=== PATIENT | female | born 1950 ===

== ENCOUNTER → 2024-03-25 06:27 | Day surgery (SDC) | payer OTHER, MEDICARE, SELFPAY | LOC: GI 06:27 | PROVIDERS: ATTENDING PHYSICIAN Surgery | DX: Z12.11 Encounter for screening for malignant neoplasm of colon (principal); D12.5 Benign neoplasm of sigmoid colon; Z86.010 Personal history of colon polyps; Z80.0 Family history of malignant neoplasm of digestive organs | CPT/HCPCS: 45385; 88305 ==

== ENCOUNTER 2024-08-10 13:06 | Inpatient (IN) | payer MEDICARE, SELFPAY ==
[2024-08-10] VITALS (7 sets, daily range): BP systolic 112–157; BP diastolic 61–108; BMI 24.2; BMI 23.9
--- NOTE | 2024-08-10 08:24 | ED.GENMED ---
History of Present Illness
<TALA Urena - Last Filed: 08/10/24 11:18>
General
Chief Complaint: Flank Pain
Source: patient
Exam Limitations: none
Time Seen by Provider: 08/10/24 08:06
Nursing documentation reviewed up to this point in time: agreed with
History of Present Illness
History of Present Illness:
Patient is a 74-year-old female who presents to the ER complaint of left flank pain chills, and urinary frequency since yesterday. She presents to the ER with rigors chills. Initial temp at triage was 100.1 however on my repeat temp patient's
temperature was 103.3. She complains of left flank pain and is now vomiting during my exam. She did not take any Tylenol today.
She did a eurq-fbn-[id number] urine test at home which was positive for UTI. Patient has a history of kidney stones years ago.
Review of Systems
<TALA Urena - Last Filed: 08/10/24 11:18>
Review of Systems
Allergies reviewed?: Yes
All Other Systems: ROS reviewed and negative except as documented in HPI and ROS
Constitutional: Reports fever and chills
Respiratory: Reports no symptoms
Cardiac: Reports no symptoms
ABD/GI: Reports nausea and vomiting
: Reports frequency and flank pain
Musculoskeletal: Reports no symptoms
Skin: Reports no symptoms
Neurological: Reports no symptoms
Psychiatric: Reports no symptoms
Phy Exam
<TALA Urena - Last Filed: 08/10/24 11:18>
General Physical Exam
General Presentation: no apparent distress
General age: appears stated age
General Skin: warm and dry
General Habitus: normal
General Mental: alert
General Hydration: appears well hydrated
Gastrointestinal Exam
Gastrointestinal Exam: non tender and soft
Musculoskeletal Exam
Musculoskeletal Exam: full ROM
Skin Exam
Skin Exam: normal color and warm/dry
Psychiatric Exam
Psychiatric Exam: normal mood/affect
Sepsis
<TALA Urena - Last Filed: 08/10/24 11:18>
Sepsis Screening
Sepsis Assessment: Sepsis
Sepsis Screen
Sepsis Screen: Sepsis
Date: 08/10/24
Time: 11:18
Course
<TALA Urena - Last Filed: 08/10/24 11:18>
Orders/Labs/Results
Orders:
Orders
08/10/24 08:21
IV Insert/Care/Rem.- Treatment PRN
0.9% Sodium Chloride 1000 ml [Nss] 1,000 ml IV BOLUS
0.9% Sodium Chloride 1000 ml [Nss] 1,000 ml IV BOLUS
Ondansetron Injectable [Zofran] 4 mg IV NOW STA
08/10/24 08:24
CT Abd/pel Without Iv Or Oral Urgent
Comment:
Reason For Exam: left flank pain
08/10/24 08:31
Complete Blood Count/With Diff Urgent
Comprehensive Metabolic Panel Urgent
08/10/24 08:36
Lactate Level [Lactic Acid] Urgent
08/10/24 08:48
Acetaminophen [Tylenol] 650 mg .ROUTE .STK-MED ONE
08/10/24 08:50
Acetaminophen [Tylenol] 650 mg PO NOW STA
08/10/24 08:57
Urinalysis Reflex To Culture Urgent
Date Specimen was Collected: 08/10/24
Time Specimen was Collected: 08:53
Urine Microscopic Reflex Cult Urgent
Urine Culture Urgent
FAITH Source: U
Specimen Description:
Date Specimen was Collected: 08/10/24
Time Specimen was Collected: 08:53
08/10/24 09:48
Ketorolac [Toradol] 15 mg IV NOW STA
08/10/24 09:49
Ketorolac [Toradol] 15 mg .ROUTE .STK-MED ONE
08/10/24 10:22
CefTRIAXone [Rocephin] 1,000 mg IV NOW STA
08/10/24 10:50
Blood Culture Routine
FIATH Source: Blood/Venous
Specimen Description:
Blood Culture Urgent
FAITH Source: Blood/Venous
Specimen Description:
Abnormal Lab Results
08/10/24 08/10/24 08/10/24
08:31 08:36 08:57
WBC 3.6 L 10^3/uL
(4.8-10.8)
RBC 3.87 L 10^6/uL
(4.20-5.40)
Hgb 11.8 L g/dL
(12.0-16.0)
Hct 34.6 L %
(37.0-47.0)
Absolute Lymphs (auto) 0.3 L 10^3/uL
(1.2-3.4)
Absolute Monos (auto) 0.0 L 10^3/uL
(0.1-0.6)
Immature Gran % 0.6 H %
(0-0.5)
Neutrophils % 88.8 H %
(42.2-75.2)
Lymphocytes % 9.4 L %
(20.5-51.1)
Monocytes % 0.6 L %
(1.7-9.3)
BUN 25 H mg/dl
(7-17)
Creatinine 1.1 H mg/dL
(0.6-1.0)
Glucose 150 H mg/dl
(70-99)
Lactic Acid 2.5 H mmol/L
(0.7-2.0)
AST 47 H U/L
(14-36)
ALT 45 H U/L
(0-35)
Ur Occult Blood Reflex Trace A
(Negative)
Urine Nitrite (Reflex) Positive A
(Negative)
Leukocyte Esterase Rfl 1+ A
(Negative)
Urine WBC (Reflex) 30-40 A /HPF
(0-5)
Urine Bacteria (Reflex) Many A
(Negative)
Urine Albumin (Reflex) 3+ A
(Neg - Trace)
08/10/24 08:31
08/10/24 08:31
Vital Signs
Initial and Last Documented VS:
Initial Vital Signs
Temp Pulse Resp BP Pulse Ox
100.1 F 120 20 140/108 96
08/10/24 07:50 08/10/24 07:50 08/10/24 07:50 08/10/24 07:50 08/10/24 07:50
Last Documented Vital Signs
Temp Pulse Resp BP Pulse Ox
100.4 F H 115 27 117/71 89
08/10/24 11:07 08/10/24 10:30 08/10/24 10:30 08/10/24 10:00 08/10/24 10:30
Client Service Representative consulted with Physician
Client Service Representative consulted with physician?: Yes
Name of Physician Consulted: DR Haile
<Reji Nicole, DO - Last Filed: 08/10/24 10:33>
Orders/Labs/Results
Orders:
Orders
08/10/24 08:21
IV Insert/Care/Rem.- Treatment PRN
0.9% Sodium Chloride 1000 ml [Nss] 1,000 ml IV BOLUS
0.9% Sodium Chloride 1000 ml [Nss] 1,000 ml IV BOLUS
Ondansetron Injectable [Zofran] 4 mg IV NOW STA
08/10/24 08:24
CT Abd/pel Without Iv Or Oral Urgent
Comment:
Reason For Exam: left flank pain
08/10/24 08:31
Complete Blood Count/With Diff Urgent
Comprehensive Metabolic Panel Urgent
08/10/24 08:36
Lactate Level [Lactic Acid] Urgent
08/10/24 08:48
Acetaminophen [Tylenol] 650 mg .ROUTE .STK-MED ONE
08/10/24 08:50
Acetaminophen [Tylenol] 650 mg PO NOW STA
08/10/24 08:57
Urinalysis Reflex To Culture Urgent
Date Specimen was Collected: 08/10/24
Time Specimen was Collected: 08:53
Urine Microscopic Reflex Cult Urgent
Urine Culture Urgent
FAITH Source: U
Specimen Description:
Date Specimen was Collected: 08/10/24
Time Specimen was Collected: 08:53
08/10/24 09:48
Ketorolac [Toradol] 15 mg IV NOW STA
08/10/24 09:49
Ketorolac [Toradol] 15 mg .ROUTE .STK-MED ONE
08/10/24 10:22
CefTRIAXone [Rocephin] 1,000 mg IV NOW STA
08/10/24 10:50
Blood Culture Routine
FAITH Source: Blood/Venous
Specimen Description:
Blood Culture Urgent
FAITH Source: Blood/Venous
Specimen Description:
Abnormal Lab Results
08/10/24 08/10/24 08/10/24
08:31 08:36 08:57
WBC 3.6 L 10^3/uL
(4.8-10.8)
RBC 3.87 L 10^6/uL
(4.20-5.40)
Hgb 11.8 L g/dL
(12.0-16.0)
Hct 34.6 L %
(37.0-47.0)
Absolute Lymphs (auto) 0.3 L 10^3/uL
(1.2-3.4)
Absolute Monos (auto) 0.0 L 10^3/uL
(0.1-0.6)
Immature Gran % 0.6 H %
(0-0.5)
Neutrophils % 88.8 H %
(42.2-75.2)
Lymphocytes % 9.4 L %
(20.5-51.1)
Monocytes % 0.6 L %
(1.7-9.3)
BUN 25 H mg/dl
(7-17)
Creatinine 1.1 H mg/dL
(0.6-1.0)
Glucose 150 H mg/dl
(70-99)
Lactic Acid 2.5 H mmol/L
(0.7-2.0)
AST 47 H U/L
(14-36)
ALT 45 H U/L
(0-35)
Ur Occult Blood Reflex Trace A
(Negative)
Urine Nitrite (Reflex) Positive A
(Negative)
Leukocyte Esterase Rfl 1+ A
(Negative)
Urine WBC (Reflex) 30-40 A /HPF
(0-5)
Urine Bacteria (Reflex) Many A
(Negative)
Urine Albumin (Reflex) 3+ A
(Neg - Trace)
08/10/24 08:31
08/10/24 08:31
Vital Signs
Initial and Last Documented VS:
Initial Vital Signs
Temp Pulse Resp BP Pulse Ox
100.1 F 120 20 140/108 96
08/10/24 07:50 08/10/24 07:50 08/10/24 07:50 08/10/24 07:50 08/10/24 07:50
Last Documented Vital Signs
Temp Pulse Resp BP Pulse Ox
100.4 F H 115 27 117/71 89
08/10/24 11:07 08/10/24 10:30 08/10/24 10:30 08/10/24 10:00 08/10/24 10:30
<TALA Urena - Last Filed: 08/10/24 11:18>
MDM/Problems Addressed
Differential Diagnosis Includes:
Not limited to pyelonephritis, UTI renal stone
MDM/Problems Addressed:
Patient is a 74-year-old female who presented with fevers rigors left flank pain frequency. Patient presents febrile at 103.3 with rigors on exam. Patient was given fluids. Patient did vomit during my exam and was given Zofran finally after
nausea resolved patient was given Tylenol now feeling better UA consistent with UTI no RBCs. CAT scan done in the limited because of hip replacements no obvious stone symptoms consistent with pyelonephritis will admit for IV antibiotics and fluids
<TALA Urena - Last Filed: 08/10/24 11:18>
*Radiology
Radiology exam reviewed: radiology read reviewed
*Pulse Oximetry
Patient hypoxic: no
*Critical Care Note
Total Time (30-74mins, 75-104mins- exclusive of procedures): Not Applicable
ED Attending Note
<TALA Urena - Last Filed: 08/10/24 11:18>
-
Portions of this chart may have been created with voice recognition software.� Occasional wrong word or��sound alike� substitutions may have occurred due to the inherent limitations of voice recognition software.
<Reji Nicole DO - Last Filed: 08/10/24 10:33>
ED Attending Note
Patient seen and examined by attending physician: Yes
I performed the substantive portion of visit, reviewed & personally made and approve the management plan that is documented in note by myself or JENINFER.: Yes
ED Attending Note:
Seen with ETL DATABASE DEVELOPER examined dependently left flank pain fever chills dysuria prior kidney stone labs noted urine noted cultures are pending CT noted no definitive stone will start on antibiotics following resuscitation I believe will be prudent to admit
her to the hospital
Discharge Plan
Departure
Patient Disposition: Admit
Date of Disposition: 08/10/24
Time of Disposition: 11:17
Admit to: Med/Surg
Admit to doctor: hospitalist
Presentation/result/management discussed w/ accepting MD/DO: Hospitalist
Patient with high blood pressure during this ER visit?: Yes
Condition: Fair
Covid-19: Not Applicable
Discharge Problem:
Acute pyelonephritis
Prescriptions:
No Action
lisinopril 40 mg Tablet
40 mg PO DAILY
rosuvastatin 40 mg Tablet
40 mg PO DAILY
Referrals:
NONE,* [Family Provider] -
Interventions
Interventions:
*Risk Screen - Suicide Last Done: 08/10/24 07:50
*General Assessment Last Done: 08/10/24 07:50
*Neglect/Abuse Screening Last Done: 08/10/24 08:39
ED- Fall Risk Assessment Last Done: 08/10/24 08:39
*ED COVID-19 Vaccine History Last Done: 08/10/24 07:50
GT-Bapspz-Jfdmlizack Assessment Last Done: 08/10/24 08:39
ED-Female Genitourinary Assessment Last Done: 08/10/24 08:39
Discharge Date and Time
Print Language: THAI
[2024-08-10] MEDS: NSS 1000 IV (08:29)
[2024-08-10] MEDS: ZOFRAN 4 MG IV (08:29)
[2024-08-10 08:44] LABS: % Basophils 0.6 % (0-2); % Immature Granulocytes 0.6 % (0-0.5); % Lymphocytes 9.4 % (20.5-51.1); % Monocytes 0.6 % (1.7-9.3); % Neutrophils 88.8 % (42.2-75.2); Absolute Lymphocytes 0.3 10^3/uL (1.2-3.4); Absolute Neutrophils 3.2 10^3/uL (1.4-6.5); Hematocrit 34.6 % (37.0-47.0); Hemoglobin 11.8 g/dL (12.0-16.0); Mean Corp Hgb Conc. 34.1 g/dL (33.0-37.0); Mean Corpuscular Hgb 30.5 pg (27.0-31.0); Mean Corpuscular Volume 89.4 fL (81.0-99.0); Mean Platelet Volume 10.4 fL (7.4-10.4); Nucleated Red Blood Cells % 0 %; Platelet Count 185 10^3/uL (130-400); Red Blood Cell Count 3.87 10^6/uL (4.20-5.40); Red Cell Dist. Width 12.7 % (11.5-14.5); White Blood Cell Count 3.6 10^3/uL (4.8-10.8)
[2024-08-10] MEDS: TYLENOL 650 MG PO ×2 (08:50→23:24)
[2024-08-10 08:53] LABS: Lactic Acid 2.5 mmol/L (0.7-2.0)
[2024-08-10 08:54] LABS: ALT (SGPT) 45 U/L (0-35); AST (SGOT) 47 U/L (14-36); Albumin 4.9 g/dl (3.5-5.0); Alkaline Phosphatase 64 U/L (38-126); Blood Urea Nitrogen 25 mg/dl (7-17); Calcium 10.1 mg/dl (8.4-10.2); Carbon Dioxide 22 mmol/L (22-30); Chloride 102 mmol/L (98-107); Estimated Creatinine Clearance -14 ml/min; Glucose 150 mg/dl (70-99); Potassium 4.6 mmol/L (3.5-5.1); Sodium 140 mmol/L (135-145); Total Bilirubin 1.2 mg/dl (0.2-1.3); Total Protein 7.4 g/dl (6.3-8.2); eGFR 53.06
[2024-08-10 09:40] LABS: Urine Albumin 3+ (Neg - Trace); Urine Bilirubin Negative (Negative); Urine Character Slightly Cloudy (Clear); Urine Color Yellow; Urine Glucose Negative (Negative); Urine Ketone Negative (Negative); Urine Leukocyte 1+ (Negative); Urine Nitrite Positive (Negative); Urine Occult Blood Trace (Negative); Urine Urobilinogen Negative (Neg - 1+)
[2024-08-10] MEDS: TORADOL 15 MG IV (09:51)
[2024-08-10 10:29] LABS: Urine Squamous Cell 16-20 /LPF (Few)
[2024-08-10 10:31] LABS: Urine Amorphous Seen; Urine Bacteria Many (Negative); Urine Red Blood Cell 0-2 /HPF (0-2); Urine White Cell 30-40 /HPF (0-5)
[2024-08-10] MEDS: ROCEPHIN 1000 MG IV (10:51)
--- NOTE | 2024-08-10 14:55 | PTCARENOTE ---
Pt arrived to 2S on stretcher. Ambulated to bed independently, gait steady. Full assessment completed. Telemetry applied. Pt denies pain, urinary symptoms at this time. Bed locked and in the lowest position, safety maintained. Oriented to room and
call ku.
--- NOTE | 2024-08-10 15:54 | W.PN.UPDATE ---
Update Note
Progress Note Update
I personally performed a history and physical exam of the patient and discussed management with the resident. I reviewed the resident's note and agree with the documented findings and plan of care HPI/CC.
74-year-old female with past medical history of essential hypertension, hyperlipidemia, history of nephrolithiasis and lithotripsy in the past came to ER with new onset of left-sided flank pain associated with fever episode. No reported nausea or
vomiting. Patient patient have some urinary urgency, no hematuria reported. Patient with history of recurrent kidney stone issue and had lithotripsy done in the past, denies of having any drug-resistant urine tract infection in the past.
HEENT: No pallor, cyanosis, or jaundice. Throat clear.
NECK: Supple. No JVD.
RESPIRATORY: Lungs clear to auscultation.
CVS: S1, S2 normal. RRR. No murmur, rub or gallop.
ABDOMEN: Soft, normal BS, left CV tenderness
EXTREMITIES: No peripheral cyanosis or edema.
HOSPITAL ACCOUNT MANAGER: AOx3. No focal deficits.
Sepsis
Left-sided pyelonephritis
Urine tract infection
-Patient comes in with new left-sided costovertebral angle tenderness, urinary urgency/fever/tachycardia
-UA showing pyuria and bacteriuria
-CT abdomen pelvis showing left kidney perinephric fat stranding
-Does have history of kidney stone although no obstructive uropathy this time around
-Blood and urine cs collected in ER
-Patient denies of having any MDR organisms isolated in the past, maintain on IV Rocephin right now
-Vital stable and not having any nausea vomiting. Encourage patient to have increased oral intake
Sinus tachycardia
-part of sepsis, EKG x1
-monitor on telemetry for night
Full code
Total time spent : 77 mins
I personally saw and examined the patient.
I have reviewed all diagnostic interpretations and treatment plans as written.
Time includes patient management by me, time spent at the patients bedside, time to review lab and imaging results, discussing patient care, documentation in the medical record, and time spent with the family or caregiver and discussing care plan
with RN/Consultants.
--- NOTE | 2024-08-10 15:57 | HPS.HSE ---
Family Physician
-
Family Physician: TALA Moreau
Chief Complaint
-
Flank pain
History of Present Illness
74-year-old female with remote history of nephrolithiasis, hypercholesterolemia, hypertension, who presented to the ED with sharp left flank pain, urinary frequency, urgency and incontinence x 1 day. She also noted rigors/chills and subjective
fever. She took an at home ivgw-yjy-qbhoyit UTI test kit which was positive. Sparse history of UTIs in her life, most recent was 'a long time ago'.
Denies dysuria, hematuria, retention, nausea/vomiting, abdominal pain, diarrhea/constipation, reduced p.o. intake or anuria.
Medical History
Past Medical History
Past Medical History: Reports HTN, Hypercholesterolemia and Other (hx of nephrolithiasis)
Past Surgical History: Reports Orthopedic (Bilateral hip replacements) and Urological (lithotripsy X 2)
Social History
Tobacco: Non-smoker
Alcohol: Occasional
Drug: None
Personal:
Living: With Family
Family History
Family History: Cancer (Sister at age 77) and Other (valvular heart disease in mother, stroke in father)
Allergies / Home Medications
Allergies reflects when Allergies were last updated in [facility](ye[facility]IN.
Allergies
Allergy/AdvReac Type Severity Reaction Status Date / Time
Sulfa (Sulfonamide Allergy Unknown Verified 08/10/24 07:52
Antibiotics)
Home Medications
lisinopril 40 mg tablet 40 mg PO DAILY 08/10/24
magnesium oxide 400 mg PO DAILY 08/10/24
rosuvastatin 40 mg tablet 40 mg PO QPM 08/10/24
therapeutic multivitamin 1 tab PO DAILY 08/10/24
Home Medications with original date entered in [facility](ye[facility]
Allergy/Medication List:
Allergies
Allergy/AdvReac Type Severity Reaction Status Date / Time
Sulfa (Sulfonamide Allergy Unknown Verified 08/10/24 07:52
Antibiotics)
Home Medications
lisinopril 40 mg tablet 40 mg PO DAILY 08/10/24
magnesium oxide 400 mg PO DAILY 08/10/24
rosuvastatin 40 mg tablet 40 mg PO QPM 08/10/24
therapeutic multivitamin 1 tab PO DAILY 08/10/24
Review of Systems
-
History Source: Patient
Constitutional: Reports Fever
Respiratory: Denies Trouble Breathing
Cardiac: Denies Chest Pain or Palpitations
Abdomen/GI: Denies Abdominal Pain, Nausea, Vomiting, Diarrhea, Constipated, Bloody Stools or Anorexia
: Reports Frequency, Flank Pain, Incontinence and Urgency; Denies Dysuria, Difficulty Voiding or Bleeding
Musculoskeletal: Denies Edema
Neurological: Denies Dizzy or Headache
Physical Exam
Vital Signs
Vital Signs
Temp Pulse Resp BP Pulse Ox
98.6 F 105 16 112/61 96
08/10/24 14:55 08/10/24 14:55 08/10/24 14:55 08/10/24 14:55 08/10/24 14:55
Physical Exam
General: Well Developed, Well Nourished, No Apparent Distress and Comfortable
HEENT: NormoCephalic, Anicteric and Moist mucous membranes
Respiratory: Clear and Non Labored Respirations; No Wheezes, Rales, Rhonchi or Crackles
Cardiac: S1/S2, Regular Rhythm and Tachycardia; No Peripheral Edema
GI: Soft, Non Tender, Non Distended and Normal Bowel Sounds
Genito-urinary: Costovertebral angle tend (left) and Other (no suprapubic tenderness/fullness)
Musculoskeletal: No Clubbing, No Cyanosis and No Edema
Skin: Warm and Dry
Neuro: Awake and Alert
Psych: Calm
Laboratory Results
-
08/10/24 08:31
08/10/24 08:31
Laboratory Results
Lactic Acid 2.5 mmol/L (0.7-2.0) H 08/10/24 08:36
Total Bilirubin 1.2 mg/dl (0.2-1.3) 08/10/24 08:31
AST 47 U/L (14-36) H 08/10/24 08:31
ALT 45 U/L (0-35) H 08/10/24 08:31
Alkaline Phosphatase 64 U/L (38-126) 08/10/24 08:31
Impression/Plan
-
IMPRESSION: 74 year old female with hypertension, hyperlipidemia, and remote history of nephrolithiasis, who presents with sepsis secondary to pyelonephritis.
PLAN:
Sepsis secondary to pyelonephritis
Febrile, tachycardic, tachypneic, with elevated lactate. No leukocytosis but left shift present.
CT abd/pel: perinephric stranding/edema around the left kidney. There is slight asymmetric fullness of the left-sided collecting system. No obstructing stone visualized
- Admit to telemetry
- Blood cultures, urine culture pending
- Status post IV fluid bolus. Blood pressure normal. Normal p.o. intake, will give IV fluid as needed
- Ceftriaxone started in the ED. Continue ceftriaxone
Prerenal azotemia:
-No known history of CKD. Possibly secondary to sepsis
-Hold lisinopril, avoid nephrotoxic agents
-Monitor for now, start IV fluid as needed
Transaminitis:
Mild. likely reactive, secondary to sepsis
-Follow CMP
Hypertension:
Stable at this time
-Hold lisinopril for azotemia
-Monitor
Hypercholesterolemia:
- Continue rosuvastatin
- Monitor LFTs. Will hold if worsen
DVT prophylaxis: Heparin subcu
CODE STATUS: Full code
[2024-08-10] MEDS: CRESTOR 40 MG PO (17:17)
[2024-08-10 18:31] LABS: Lactic Acid 1.4 mmol/L (0.7-2.0)
[2024-08-10] MEDS: HEPARIN SC (20:00)
[2024-08-11 03:45] VITALS: BP 116/71
[2024-08-11 07:16] LABS: Hematocrit 28.2 % (37.0-47.0); Hemoglobin 9.4 g/dL (12.0-16.0); Mean Corp Hgb Conc. 33.3 g/dL (33.0-37.0); Mean Platelet Volume 11.1 fL (7.4-10.4); Platelet Count 154 10^3/uL (130-400); Red Blood Cell Count 3.24 10^6/uL (4.20-5.40); Red Cell Dist. Width 13.2 % (11.5-14.5); White Blood Cell Count 10.7 10^3/uL (4.8-10.8)
[2024-08-11 07:48] LABS: ALT (SGPT) 41 U/L (0-35); AST (SGOT) 42 U/L (14-36); Albumin 3.6 g/dl (3.5-5.0); Alkaline Phosphatase 65 U/L (38-126); Blood Urea Nitrogen 34 mg/dl (7-17); Calcium 8.9 mg/dl (8.4-10.2); Carbon Dioxide 22 mmol/L (22-30); Chloride 103 mmol/L (98-107); Estimated Creatinine Clearance 36 ml/min; Glucose 90 mg/dl (70-99); Potassium 4.4 mmol/L (3.5-5.1); Sodium 139 mmol/L (135-145); Total Bilirubin 0.8 mg/dl (0.2-1.3); Total Protein 5.9 g/dl (6.3-8.2); eGFR 43.42
[2024-08-11 07:49] VITALS: BP 147/80
[2024-08-11 08:19] LABS: Absolute Neutrophils -Man Diff 9.2 10^3/uL (1.4-6.5); Band Neutrophils 12 % (0-3); Eosinophils 3 % (0-6); Lymphocytes 8 % (20-51); Monocytes 3 % (2-9); Platelets Checked Yes; Segmented Neutrophils 74 % (42-75)
[2024-08-11 08:20] LABS: Normal RBC Morphology Yes; Total Cells Counted 100
[2024-08-11] MEDS: MAG-TAB SR 84 MG PO (09:09)
[2024-08-11] MEDS: STERILE WATER FOR INJECTION 10 ML IV (09:09)
[2024-08-11] MEDS: THERAGRAN 1 TABLET PO (09:09)
[2024-08-11] MEDS: ROCEPHIN 1000 MG IV (09:09)
[2024-08-11] MEDS: LR 1000 IV (09:14)
[2024-08-11] MEDS: HEPARIN 5000 UNITS SC ×2 (09:17→20:48)
--- NOTE | 2024-08-11 11:00 | CM ---
Dx- sepsis/pyelonephritis
Met with pt at bedside
Pt reports she lives with her in a 2 story home; 2 steps to enter, 12 steps to 2nd fl
Independent, active, driving
DME - none
SNF/HH - denies past hx
Has ride at discharge
PCP - Kingsley Felix
Pharm - [facility]
Plan - anticipate home no needs when medically stable
[2024-08-11] MEDS: TYLENOL 650 MG PO ×2 (11:17→23:38)
--- NOTE | 2024-08-11 11:18 | PTCARENOTE ---
Dr. Contreras and Dr. Jensen made aware of patients temp of 103F and HR of 102. Tylenol given per MAR. Care ongoing at this time.
[2024-08-11 11:29] VITALS: BP 154/94
--- NOTE | 2024-08-11 13:39 | W.PN.HOSP.TC ---
Addendum entered and electronically signed by Ori Contreras MD 08/11/24 15:00:
I saw and evaluated the patient. I reviewed the resident�s note and agree with findings and plan as documented in the resident�s note.
1. E. coli bacteremia from left sided pyelonephritis -patient continues to have fever. WBC increased to 10.7 K, continue monitoring. Patient also some bandemia with 12% bands. Currently on IV Rocephin. Blood culture growing E. coli in both
sets, further susceptibility pending. Patient is planned for orthopedic procedure in 2 weeks although in light of bacteremia likely not a candidate. Family requesting infectious disease to be involved in care, consult placed.
2. AGUSTINA -patient renal function declining with creatinine 1.3 today. Likely prerenal in nature and postvoid residual within normal limit. Patient got 1 L of NS yesterday ordered 1 L of LR today. Continue holding lisinopril.
Original Note:
Today's Communication/Plan
-
Ecoli bacteremia, ongoing fevers. Continue ceftriaxone pending sensitivities. Continue IVF
Assessment / Plan
Assessment / Plan
IMPRESSION: 74 year old female with hypertension, hyperlipidemia, and remote history of nephrolithiasis, who presents with sepsis secondary to pyelonephritis.
PLAN:
Sepsis secondary to pyelonephritis and ecoli bacteremia
Febrile, tachycardic, tachypneic, with elevated lactate. No leukocytosis but left shift present. Ongoing fevers. Blood Cx positive for Ecoli
CT abd/pel: perinephric stranding/edema around the left kidney. There is slight asymmetric fullness of the left-sided collecting system. No obstructing stone visualized
- Urine culture pending
- Continue Ceftriaxone pending sensitivities
Prerenal azotemia:
-No known history of CKD. Possibly secondary to sepsis
-Lisinopril dose recently doubled, possibly contributory. Hold. Avoid nephrotoxic agents
-Continue IVF, Monitor
Transaminitis:
Improving. likely reactive, secondary to sepsis
-Follow CMP
Hypertension:
Stable at this time
-Hold lisinopril for azotemia
-Monitor
Hypercholesterolemia:
- Continue rosuvastatin
- Monitor LFTs. Will hold if worsen
DVT prophylaxis: Heparin subcu
CODE STATUS: Full code
Anticipated Discharge: 24 - 48 hours
Subjective/Interval History
-
Date of Service: August 11, 2024
Continued episodic fevers
Objective Data
-
Labs:
Laboratory Results
08/11/24
04:53
WBC 10.7
Hgb 9.4 L D
Hct 28.2 L
Plt Count 154
Sodium 139
Potassium 4.4
Chloride 103
Carbon Dioxide 22
BUN 34 H
Creatinine 1.3 H
Glucose 90
Calcium 8.9
Total Bilirubin 0.8
AST 42 H
ALT 41 H
Alkaline Phosphatase 65
Vital Signs:
Vital Signs
Temp Pulse Resp BP Pulse Ox
98.4 F 102 18 154/94 96
08/11/24 12:20 08/11/24 11:29 08/11/24 11:29 08/11/24 11:29 08/11/24 11:29
I&O
08/10/24 08/11/24 08/12/24
06:59 06:59 06:59
Intake Total 1740 / 1740
Balance 1740 / 1740
Review of Systems
-
History Source: Patient
Constitutional: Reports Fever and No Appetite
Respiratory: Denies Trouble Breathing
Cardiac: Denies Chest Pain or Palpitations
Abdomen/GI: Denies Abdominal Pain, Nausea, Vomiting, Diarrhea, Constipated, Bloody Stools or Black Stools
Genitourinary: Reports Frequency, Flank Pain (left flank pain) and Urgency; Denies Dysuria or Bleeding
Neuro: Denies Dizzy or Headache
Physical Exam
-
General: Well Developed, Well Nourished, No Apparent Distress, Comfortable and Fever
HEENT: Normocephalic, Atraumatic and Other (dry mucous membranes)
Respiratory: Clear to Auscultation and Non Labored Respirations; Negative Wheezes, Rales, Rhonchi or Crackles
Cardiac: Regular Rhythm, S1/S2 and Tachycardic; Negative Murmur, Rub or Calf Tenderness
GI: Soft, Nontender, Nondistended and Normal Bowel Sounds
Genito-urinary: Costovertebral Angle Tend (left)
Musculoskeletal: Negative No Clubbing, No Cyanosis or No Edema
Neuro: Awake, Alert and Nonfocal/Grossly Intact
Psych: Calm and Confused
--- NOTE | 2024-08-11 14:37 | CON.ID ---
Consultation
-
Date/Time Consultation Requested: 08/11/24 14:29
Date/Time Consultation Performed: 08/11/24 14:37
Requesting Provider: Dr Jensen
Performing Provider: Dr Aleman
Reason for Consultation: fever, pyelonephritis
Chief Complaint / Past History
Chief Complaint
flank pain
History of Present Illness
Ms Winkler is a 74 year old female with history of nephrolithiasis who presented here yesterday for 1 day of rigors, subjective fever, sharp L flank pain, urinary frequency and urinary urgency. Also vomited in the ER. She denies: syduria,
hematuria, nausea, vomiting, abdominal pain, diarrhea and constipation. Reports infrequent UTIs. Last renal stone was years ago.
Since arrival here she has been spikinig fevers to 103.2 orally, bp has been stable, HR initially 130s now 80s-100, RR teens, WBC on arrival 3.6 now 10.7, hgb 11.8 now 9.4, plt 154, L shift noted on arrival and has persisted, cr initially 1.1 now
1.3, lactic acid initially 2.5 resolved to 1.4, t bili 0.8, ast 42, alt 41, alk phos 65, ua 30-40 wbc/hpf and many bacteria, 08/10 CT a/p without iv or oral contrast: perinephric stranding/edema around the left kidney. There is slight asymmetric
fullness of the left-sided collecting system. No obstructing stone is visualized, however evaluation of the pelvis is severely limited by the bilateral hip arthroplasties, blood culture E coli by [facility], in two sets of blood cultures, urine
culture in progress, patient had first dose of ceftriaxone 08/10 at 10:51, she is a bit over 24 hours into
Past History
Additional Past Medical History:
HTN, Hypercholesterolemia and Other (hx of nephrolithiasis)
Additional Past Surgical History:
(Bilateral hip replacements) and Urological (lithotripsy X 2)
Allergy History:
Sulfa (Sulfonamide Antibiotics) Allergy (Verified 08/10/24 07:52)
Unknown
Medications Reviewed: Yes
Social History
Tobacco: Non-Smoker
Alcohol: Occasional
Drug: None
Family History
Family History: Not Pertinent
Review of Systems
Review of Systems
General: Fever and Chills
All systems: All other systems were reviewed and were negative
Vital Signs
Temp Pulse Resp BP Pulse Ox
98.4 F 102 18 154/94 96
08/11/24 12:20 08/11/24 11:29 08/11/24 11:29 08/11/24 11:29 08/11/24 11:29
Physical Exam
Physical Exam
Constitutional: No Acute Distress and Acutely Ill
Cardiovascular: Regular Rate and S1/S2; Negative Murmur or Rub
Pulmonary: Clear and Symmetric; Negative Wheezes, Rales or Rhonchi
Gastrointestinal: Soft, Non Tender, Non Distended and Normal Bowel Sounds
Genito-Urinary: Other (tenderness over the L iliac crest, no significant tenderness over the L CVA); Negative Suprapubic Tenderness
Skin: Warm and Dry; Negative Rash or Jaundice
Lab / Diagnostic Study Results
08/11/24 04:53
08/11/24 04:53
Abs Immat Gran (auto) 0.0 10^3/uL (0-0.05) 08/10/24 08:31
Absolute Neuts (auto) 3.2 10^3/uL (1.4-6.5) 08/10/24 08:31
Absolute Lymphs (auto) 0.3 10^3/uL (1.2-3.4) L 08/10/24 08:31
Absolute Monos (auto) 0.0 10^3/uL (0.1-0.6) L 08/10/24 08:31
Absolute Basos (auto) 0.0 10^3/uL (0-0.2) 08/10/24 08:31
Total Counted 100 08/11/24 04:53
Immature Gran % 0.6 % (0-0.5) H 08/10/24 08:31
Neutrophils % 88.8 % (42.2-75.2) H 08/10/24 08:31
Lymphocytes % 9.4 % (20.5-51.1) L 08/10/24 08:31
Monocytes % 0.6 % (1.7-9.3) L 08/10/24 08:31
Eosinophils % 0.0 % (0-6) 08/10/24 08:31
Basophils % 0.6 % (0-2) 08/10/24 08:31
Abs Neuts (Manual) 9.2 10^3/uL (1.4-6.5) H 08/11/24 04:53
Segmented Neutrophils 74 % (42-75) 08/11/24 04:53
Band Neutrophils 12 % (0-3) H 08/11/24 04:53
Lymphocytes (Manual) 8 % (20-51) L 08/11/24 04:53
Eosinophils (Manual) 3 % (0-6) 08/11/24 04:53
Lactic Acid 1.4 mmol/L (0.7-2.0) 08/10/24 18:09
Ur Squamous Epith Cells 16-20 /LPF (Few) 08/10/24 08:57
Microbiology Results
Micro:
08/10/24 08:57 Urine Culture - Preliminary
Urine
08/10/24 10:50 Blood Culture - Preliminary
Blood/Venous Escherichia coli
Gram Stain - Preliminary
08/10/24 10:50 Blood Culture - Preliminary
Blood/Venous Positive culture in progress
Gram Stain - Preliminary
Assessment / Plan
Pyelonephritis of the L Kidney
E coli bacteremia
Remote history of renal stones - calcium
- tenderness is quite low on my exam more over the iliac crest than the CVA, she denies the pain moving but I am still concerned for renal stone
- CT abd was limited by artifact from hip prostheses - check renal US to rule out obstructing stone
- blood culture with e coli - no need to repeat blood cultures for gram negative bacteremia - very low risk of dissemination
- urine culture pending - anticipate e coli
- in general would give 48-72 hour trial of empiric antibiotics before considering a switch, patient is reporting some improvement in her flank pain and VS are becoming stable
- if clinical deterioration could switch to zosyn 4.5 gm iv q6 hr to cover for esbl, however feel it would be early to do that at this time. She does not have frequent antibiotic exposure or exposure to health care
- family asks about C diff, my concern at this time is low; probiotic given
AW
[2024-08-11 15:11] VITALS: BP 118/76
[2024-08-11] MEDS: CRESTOR 40 MG PO (18:30)
[2024-08-11] MEDS: VISBIOME 2 CAP PO (18:30)
[2024-08-11 20:28] VITALS: BP 144/78
[2024-08-11 23:35] VITALS: BP 167/98
[2024-08-12 03:42] VITALS: BP 118/75
[2024-08-12 07:00] VITALS: BP 137/82
[2024-08-12 07:14] LABS: Blood Urea Nitrogen 28 mg/dl (7-17); Calcium 9.3 mg/dl (8.4-10.2); Carbon Dioxide 23 mmol/L (22-30); Chloride 105 mmol/L (98-107); Estimated Creatinine Clearance 39 ml/min; Glucose 97 mg/dl (70-99); Potassium 4.2 mmol/L (3.5-5.1); Sodium 140 mmol/L (135-145)
[2024-08-12 07:18] LABS: Hematocrit 26.3 % (37.0-47.0); Hemoglobin 9.1 g/dL (12.0-16.0); Mean Corp Hgb Conc. 34.6 g/dL (33.0-37.0); Mean Corpuscular Hgb 29.5 pg (27.0-31.0); Mean Corpuscular Volume 85.4 fL (81.0-99.0); Platelet Count 154 10^3/uL (130-400); Red Blood Cell Count 3.08 10^6/uL (4.20-5.40); White Blood Cell Count 9.6 10^3/uL (4.8-10.8)
[2024-08-12] MEDS: THERAGRAN 1 TABLET PO (08:18)
[2024-08-12] MEDS: MAG-TAB SR 84 MG PO (08:18)
[2024-08-12] MEDS: HEPARIN 5000 UNITS SC (08:18)
[2024-08-12] MEDS: VISBIOME 2 CAP PO (08:18)
--- NOTE | 2024-08-12 09:55 | W.PN.ID1 ---
Date of Service
Date of Service: August 12, 2024
Today's Communication
- plan 10 days of keflex
- no stone or hydroureter seen on US
follow up with pcp
Assessment / Plan
Pyelonephritis of the L Kidney
E coli bacteremia
Remote history of renal stones - calcium
- plan 10 days of keflex
- no stone or hydroureter seen on US
follow up with pcp
AW
Chief Complaint
-: UTI
Subjective / Review of Systems
fever curve improving
bp stable
minimal residual flank pain
renal US ureteres not visualized - normal on CT
Vital Signs / Physical Exam
Vital Signs
Vital Signs
Temp Pulse Resp BP Pulse Ox
98.3 F 78 16 137/82 97
08/12/24 07:00 08/12/24 07:00 08/12/24 07:00 08/12/24 07:00 08/12/24 07:00
Physical Exam
Constitutional: No Acute Distress
Cardiovascular: Regular Rate and S1/S2; Negative Murmur or Rub
Pulmonary: Clear and Symmetric; Negative Wheezes or Rales
Gastrointestinal: Soft, Non Tender, Non Distended and Normal Bowel Sounds
Genito-Urinary: CVA Tenderness (minimal)
Skin: Warm and Dry; Negative Rash or Jaundice
Objective Data
Lab Data
Lab Results
08/12/24 05:26
08/12/24 05:26
Estimated Creat Clear 39 ml/min 08/12/24 05:26
Lactic Acid 1.4 mmol/L (0.7-2.0) 08/10/24 18:09
Total Bilirubin 0.8 mg/dl (0.2-1.3) 08/11/24 04:53
AST 42 U/L (14-36) H 08/11/24 04:53
ALT 41 U/L (0-35) H 08/11/24 04:53
Alkaline Phosphatase 65 U/L (38-126) 08/11/24 04:53
Most recent labs reviewed.
Micro Results:
08/10/24 08:57 Urine Culture - Preliminary
Urine Gram negative bacilli
08/10/24 10:50 Blood Culture - Preliminary
Blood/Venous Positive culture in progress
Gram Stain - Preliminary
08/10/24 10:50 Blood Culture - Preliminary
Blood/Venous Escherichia coli
Gram Stain - Preliminary
08/10/24 CT a/p: There is perinephric stranding/edema around the left kidney. There is slight asymmetric fullness of the left-sided collecting system. No obstructing stone is visualized, however evaluation of the pelvis is severely limited by the
bilateral hip arthroplasties
08/11/24 Renal US: Moderate postvoid bladder residual.
Care Review
Plan reviewed with: Physician (Dr Camila brown)
[2024-08-12] MEDS: ROCEPHIN 1000 MG IV (10:54)
[2024-08-12] MEDS: STERILE WATER FOR INJECTION 10 ML IV (10:54)
--- NOTE | 2024-08-12 14:13 | W.PN.UPDATE ---
Update Note
Progress Note Update
I personally performed a history and physical exam of the patient and discussed management with the resident. I reviewed the resident's note and agree with the documented findings and plan of care HPI/CC.
Sepsis
E-coli bacteremia - Partially resistant
Left-sided pyelonephritis
Urine tract infection
-Patient comes in with new left-sided costovertebral angle tenderness, urinary urgency/fever/tachycardia
-CT abdomen pelvis showing left kidney perinephric fat stranding
-Does have history of kidney stone although no obstructive uropathy this time around
-Positive blood culture growing E. coli which is partially drug-resistant. Currently on Rocephin to which organism is sensitive.
AGUSTINA
-improving with IVF
-continue holding NAEEM/ARB
Sinus tachycardia - Improved
-d/c tele
Full code
--- NOTE | 2024-08-12 14:52 | CM ---
Addendum entered by Sandra Galdamez 08/12/24 16:31:
Pt for discharge today
Has ride home
Discussed IMM
Plan - home no needs
Original Note:
Case management following for discharge planning
Chart reviewed
ID following
Receiving IVF's
Monitoring labs
CM remains available for d/c needs
Plan - anticipate home no needs when medically stable
--- NOTE | 2024-08-12 14:53 | W.PN.HOSP.TC ---
Today's Communication/Plan
-
Transition to oral Keflex upon discharge. DC planning
Assessment / Plan
Assessment / Plan
IMPRESSION: 74 year old female with hypertension, hyperlipidemia, and remote history of nephrolithiasis, who presents with sepsis secondary to pyelonephritis.
PLAN:
Sepsis secondary to pyelonephritis and ecoli bacteremia
Febrile, tachycardic, tachypneic, with elevated lactate. No leukocytosis but left shift present. Ongoing fevers. Blood Cx positive for Ecoli sensitive to cefazolin among others
CT abd/pel: perinephric stranding/edema around the left kidney. There is slight asymmetric fullness of the left-sided collecting system. No obstructing stone visualized
- Urine culture with gram negative bacilli
- Continue Ceftriaxone. Can discharge on Keflex for 10 days
Prerenal azotemia:
-No known history of CKD. Possibly secondary to sepsis
-Lisinopril dose recently doubled, possibly contributory. Hold. Avoid nephrotoxic agents
-Continue IVF, Monitor
Transaminitis:
Improving. likely reactive, secondary to sepsis
-Follow CMP
Hypertension:
Stable at this time
-Hold lisinopril for azotemia
-Monitor
Hypercholesterolemia:
- Continue rosuvastatin
- Monitor LFTs. Will hold if worsen
DVT prophylaxis: Heparin subcu
CODE STATUS: Full code
Anticipated Discharge: Today
Subjective/Interval History
-
Date of Service: August 12, 2024
Febrile overnight.
Pt reports improvement in symptoms and is eager to be discharged to home.
Objective Data
-
Labs:
Laboratory Results
08/12/24
05:26
WBC 9.6
Hgb 9.1 L
Hct 26.3 L
Plt Count 154
Sodium 140
Potassium 4.2
Chloride 105
Carbon Dioxide 23
BUN 28 H
Creatinine 1.2 H
Glucose 97
Calcium 9.3
Vital Signs:
Vital Signs
Temp Pulse Resp BP Pulse Ox
98.3 F 78 16 137/82 97
08/12/24 07:00 08/12/24 07:00 08/12/24 07:00 08/12/24 07:00 08/12/24 07:00
I&O
08/11/24 08/12/24 08/13/24
06:59 06:59 06:59
Intake Total 1740 / 1740 3400 / 3400
Output Total 60 / 60
Balance 1740 / 1740 3340 / 3340
Review of Systems
-
History Source: Patient
Constitutional: Reports Other (poor appetite); Denies Fever
Respiratory: Denies Trouble Breathing
Cardiac: Denies Chest Pain or Palpitations
Abdomen/GI: Denies Abdominal Pain, Nausea, Vomiting, Diarrhea or Constipated
Genitourinary: Reports Flank Pain (mild); Denies Dysuria, Frequency, Incontinence, Difficulty Voiding or Bleeding
Physical Exam
-
General: Well Developed, Well Nourished, No Apparent Distress and Comfortable
HEENT: Normocephalic, Atraumatic, Moist Mucous Membranes and Anicteric
Respiratory: Clear to Auscultation and Non Labored Respirations; Negative Wheezes, Rales, Rhonchi or Crackles
Cardiac: Regular Rhythm and S1/S2; Negative Murmur, Rub or Calf Tenderness
GI: Soft, Nontender, Nondistended and Normal Bowel Sounds
Genito-urinary: No Costovertebral Tender
Musculoskeletal: No Clubbing, No Cyanosis and No Edema
Skin: Warm and Dry
Neuro: Awake, Alert and Nonfocal/Grossly Intact
Psych: Calm
[2024-08-12 15:00] VITALS: BP 117/69
--- NOTE | 2024-08-12 15:59 | W.DCSUMMARY ---
Discharge Summary
Discharge Data
Date of Admission: 08/10/24
Date of Discharge: 08/12/24
-
Pending Results: No
Hospital Course
Discharging Physician : Ori Contreras MD; Acacia Jensen MD.
Disposition : Home
Principal Discharge diagnosis : Sepsis secondary to e coli bacteremia, pyelonephritis
Chronic Discharge diagnosis : Hypertension, hypercholesterolemia, remote history of nephrolithiasis
Hospital Course :
74-year-old female with remote history of nephrolithiasis, hypercholesterolemia, hypertension, sparse history of UTI with no resistant organisms, presented to ED on 08/10 with sharp left flank pain, urinary frequency, urgency and incontinence x 1
day. She also had rigors/chills and subjective fever. At home [id number] UTI test kit which was positive. In the ED she was tachypneic, tachycardic, and febrile. Leukopenic 3.6 with left shift, mildly anemic hgb 11.8, lactacte 2.5. There was
mild transaminitis, and urinalysis was indicative of UTI. CT abd/pel with left perinephric stranding, fullness of left collecting system and no obstructing stone. Blood and urine cultures were taken, and she was started on IVF bolus and IV
ceftriaxone.
IV abx was continued for sepsis secondary to left sided pyelonephritis, and e. coli bacteremia as blood cultures turned positive for e coli. Lisinopril was held for AGUSTINA. Rosuvastatin was continued at home dose for hypercholesterolemia. Patient was
hemodynamically stable with improved symptoms and expressed desire to be discharged. Patient was stable for discharge to home with oral antibiotic therapy in line with susceptibility studies. Transaminitis improved and kidney function showed
improvement by discharge date. She is discharged with instructions to:
- Start cephalexin 500mg PO QID for 10 days
- Follow up with PCP within one week
- Hold Lisinopril and discuss continuing this medication with PCP
- Discuss with orthopedic surgeon about admission for ecoli bacteremia/sepsis in light of upcoming bilateral knee surgery.
Important imaging findings :
CT ab/pel 08/10:
There is perinephric stranding/edema around the left kidney. There is slight asymmetric fullness of the left-sided collecting system. No obstructing stone is visualized, however evaluation of the pelvis is severely limited by the bilateral hip
arthroplasties. Recommend correlation with urinalysis, as infection is within the differential. Mild colonic stool burden. Moderate hiatal hernia.
Renal and bladder US:
Bilateral simple renal cysts. 1 complex left renal cyst. Nonurgent CT examination of the kidneys or MRI examination recommended. Moderate postvoid bladder residual.
Discharge Plan
-
Patient Disposition: Home (Routine Discharge)
Discharge Diagnosis/Procedures: Ecoli bacteremia, Pyelonephritis
Condition: Fair
Diet: Regular
Activity: As tolerated
Driving Restrictions: As prior to admission
Bathing Restrictions: OK to Shower
Instructions: Urinary tract infection - Discharge instructions, Sepsis in adults - Discharge instructions, BLOOD PRESSURE
Referrals:
NONE,* [Family Provider] -
Additional Discharge Medication Instructions: Starting 08/13/2024, take cephalexin 500mg 4 times daily for 10 days (end date 08/22/2024)
Reach out to your orthopedic surgeon about your recent treatment for bacteremia and for surgery planning
Hold off on taking your Lisinopril due to reduced kidney function.
Follow up with your PCP within one week
Prescriptions:
New
cephalexin 500 mg capsule
500 mg PO QID 10 Days Qty: 40 0RF
Continued
rosuvastatin 40 mg Tablet
40 mg PO QPM
therapeutic multivitamin Tablet
1 tab PO DAILY
magnesium oxide 400 mg magnesium Tablet
400 mg PO DAILY
Held
lisinopril 40 mg Tablet
40 mg PO DAILY
Hold Instructions: Resume on 08/15/24.
Discharge Orders:
Discharge Patient (As Directed); Ordered 08/12/24
Ordered By: Acacia Jensen
Discharge Date and Time
Print Language: KINYARWANDA
[2024-08-12] MEDS: FLUAD (65 yr+) 2024-2025 FORMULA 0.5 ML IM (16:14)
== END 2024-08-12 16:50 | disposition home or self-care (01) | DRG 872 ==
LOC: 2 SOUTH 13:06
PROVIDERS: Nurse Practitioner; Student in an Organized Health Care Education/Training Program; ADMITTING PHYSICIAN Hospitalist; CONSULT PHYSICIAN Student in an Organized Health Care Education/Training Program; EMERGENCY PHYSICIAN Emergency Medicine
PROC: 3E02340 Introduction of Influenza Vaccine into Muscle, Percutaneous Approach (ICD-10-PCS; 2024-08-10)
DX: A41.51 Sepsis due to Escherichia coli [E. coli] (principal); N10 Acute pyelonephritis; N17.9 Acute kidney failure, unspecified; I10 Essential (primary) hypertension; E78.00 Pure hypercholesterolemia, unspecified; Z23 Encounter for immunization; Z96.643 Presence of artificial hip joint, bilateral; Z87.442 Personal history of urinary calculi; Z87.440 Personal history of urinary (tract) infections; Z79.899 Other long term (current) drug therapy; Z88.2 Allergy status to sulfonamides
CPT/HCPCS: 74176; 76770; 80048; 80053; 81003; 81015; 83605; 85025; 85027; 87040; 87077; 87086; 87149; 87186; 87205; 90662; 93005; 96361; 96374; 96375; 99285; G0008

== ENCOUNTER 2024-12-10 16:37 | Emergency (ER) | payer MEDICARE, SELFPAY ==
[2024-12-10 16:40] VITALS: BP 145/78
[2024-12-10 17:14] LABS: COVID-19 Antigen Negative (Negative)
--- NOTE | 2024-12-10 18:22 | ED.GENMED ---
History of Present Illness
General
Chief Complaint: Cold/Flu/URI Symptoms
Source: patient
Exam Limitations: none
Time Seen by Provider: 12/10/24 18:12
History of Present Illness
History of Present Illness:
74yoF with a history of hypertension and hyperlipidemia presenting with her for evaluation of flu-like symptoms. Symptoms began earlier today. She reports body aches, diarrhea, and a mild cough. No fevers. No chest pain or shortness of
breath. Her tested positive for the flu yesterday. She is here requesting a prescription for Tamiflu.
Phy Exam
General Physical Exam
General Presentation: well appearing and no apparent distress
General age: appears stated age
General Skin: warm and dry
General Habitus: normal
General Mental: alert
ENT Exam
ENT Exam: normocephalic
Cardiovascular Exam
Cardiovascular Exam: regular rate/rhythm and no murmur
Pulmonary Exam
Pulmonary Exam: lungs clear, no respiratory distress, no rales, no crackles and no rhonchi
Neurological Exam
Neurological Exam: alert
[place] Coma Scale
Eye Opening: Spontaneous
Verbal Response: Oriented
Motor Response: Obeys Commands
GCS Total Score: 15
Skin Exam
Skin Exam: normal color and warm/dry
Psychiatric Exam
Psychiatric Exam: normal mood/affect
Course
Orders/Labs/Results
Orders:
Orders
12/10/24 16:46
COVID-19 Antigen Urgent
Source: Nasal Swab
Influenza A+B Rapid Molecular Urgent
FAITH Source: Nasal Swab
Specimen Description:
12/10/24 18:27
Oseltamivir Phosphate [Tamiflu] 75 mg PO NOW STA
Vital Signs
Initial and Last Documented VS:
Initial Vital Signs
Temp Pulse Resp BP Pulse Ox
99 F 102 16 145/78 96
12/10/24 16:40 12/10/24 16:40 12/10/24 16:40 12/10/24 16:40 12/10/24 16:40
Last Documented Vital Signs
Temp Pulse Resp BP Pulse Ox
99.7 F 99 18 141/84 97
12/10/24 18:40 12/10/24 18:40 12/10/24 18:40 12/10/24 18:40 12/10/24 18:40
MDM/Problems Addressed
Differential Diagnosis Includes:
74yoF here with flu-like symptoms that started today. diagnosed with flu A yesterday. Denies CP/SOB. VSS. Oxygen saturation 96% on room air. She is well-appearing in no acute distress. Lungs clear to auscultation and respirations
nonlabored. Differential diagnosis includes but is not limited to: Influenza, other viral illness, seasonal allergies, doubt pneumonia
Viral testing obtained in triage and she is positive for influenza A. Patient requesting prescription for Tamiflu. Discussed risks vs. benefits of Tamiflu and patient opts for treatment and states her started it yesterday with significant
improvement. Creatinine clearance 42 based on lab work from July 2024. Dose adjusted per UpToDate recommendations. She received 75mg dose while in ED and was prescribed 30mg BID x 4 more days. Supportive care discussed. Advised follow-up with
PCP and strict ED return precautions discussed. Patient in agreement with plan and was discharged in stable condition.
*Critical Care Note
Total Time (30-74mins, 75-104mins- exclusive of procedures): Not Applicable
ED Attending Note
-
Portions of this chart may have been created with voice recognition software.� Occasional wrong word or��sound alike� substitutions may have occurred due to the inherent limitations of voice recognition software.
Discharge Plan
Departure
Patient Disposition: Home (Routine Discharge)
Date of Disposition: 12/10/24
Time of Disposition: 18:27
Patient with high blood pressure during this ER visit?: Yes
Discharge Problem:
Influenza A
Instructions: Oseltamivir, Flu in adults - ED discharge instructions
Prescriptions:
New
oseltamivir [Tamiflu] 30 mg capsule
30 mg PO BID 4 Days Qty: 8 0RF
No Action
lisinopril 40 mg Tablet
40 mg PO DAILY
rosuvastatin 40 mg Tablet
40 mg PO QPM
therapeutic multivitamin Tablet
1 tab PO DAILY
magnesium oxide 400 mg magnesium Tablet
400 mg PO DAILY
Activity Restrictions/Additional Instructions:
Take Tamiflu as prescribed. Drink plenty of fluids and rest. Take Tylenol as needed for fevers/body aches.
Please follow-up with your family doctor. Return to the ER with any worsening symptoms or trouble breathing.
Interventions
Interventions:
*Risk Screen - Suicide Last Done: 12/10/24 16:40
*General Assessment Last Done: 12/10/24 16:40
*Neglect/Abuse Screening Last Done: 12/10/24 16:40
*Nursing Disposition Last Done: 12/10/24 18:47
Discharge Date and Time
Discharge Date/Time: 12/10/24 18:48
Print Language: ARMENIAN
[2024-12-10 18:40] VITALS: BP 141/84
[2024-12-10] MEDS: TAMIFLU 75 MG PO (18:42)
== END 2024-12-10 18:48 | disposition home or self-care (01) ==
LOC: EMR 16:37
PROVIDERS: Emergency Medicine; EMERGENCY PHYSICIAN Emergency Medicine; FAMILY PHYSICIAN Nurse Practitioner Family
DX: J10.1 Influenza due to other identified influenza virus with other respiratory manifestations (principal); I10 Essential (primary) hypertension; E78.5 Hyperlipidemia, unspecified
CPT/HCPCS: 99283; 87502; 87811